=== PATIENT | female | born 1985 | race American Indian/Alaskan Native ===

== ENCOUNTER 2016-11-07 10:09 | Emergency (ER) | payer SELFPAY ==
[2016-11-07 11:46] VITALS: BP 123/86
[2016-11-07] MEDS ORDERED: TORADOL IM ONE (13:02)
--- NOTE | 2016-11-07 13:03 | Emergency Department Report ---
ED Extremity Problem HPI - General Chief complaint: Extremity Injury, Lower Stated complaint: L KNEE PAIN Time Seen by Provider: 11/07/16 12:49 Source: patient, RN notes reviewed Mode of arrival: Ambulatory Limitations: No Limitations - History of Present Illness Initial comments: This is a 31-year-old female. She is previously unknown to me. She presents to the ER with left knee pain for 3 weeks. This is an acute on chronic pain, she's been having pain for 7 or 8 years. The pain is achy, and increases with palpation or range of motion. It decreases with rest. There is no posterior leg pain or calf swelling. She does not take control tablets. No recent road trips, no recent surgeries, no recent periods of immobility. MD Complaint: extremity pain -: Gradual, week(s) Location: left, lower extremity History of Same: Yes -: Yes arthralgia Radiation: none Quality: aching Consistency: intermittent Improves with: rest Worsens with: weight bearing, walking, exertion, palpation Associated Symptoms: denies other symptoms - Related Data Previous Rx's Medication Instructions Recorded Last Taken Type Ibuprofen [Motrin] 600 mg PO Q8H PRN #30 tablet 11/07/16 Unknown Rx Allergies Allergy/AdvReac Type Severity Reaction Status Date / Time latex AdvReac Swelling Verified 11/07/16 11:48 ED Review of Systems ROS: Stated complaint: L KNEE PAIN Other details as noted in HPI ED Past Medical Hx - Past Medical History Previous Medical History?: No - Surgical History Past Surgical History?: No - Social History Smoking Status: Current Every Day Smoker Substance Use Type: Alcohol - Medications Home Medications: Home Medications Medication Instructions Recorded Confirmed Last Taken Type Ibuprofen [Motrin] 600 mg PO Q8H PRN #30 tablet 11/07/16 Unknown Rx ED Physical Exam - General Limitations: No Limitations General appearance: alert, in no apparent distress - Head Head exam: Present: atraumatic, normocephalic - Eye Eye exam: Present: normal appearance, EOMI. Absent: nystagmus - ENT ENT exam: Present: normal exam, normal orophraynx, mucous membranes moist, normal external ear exam - Neck Neck exam: Present: normal inspection, full ROM. Absent: tenderness, meningismus - Respiratory Respiratory exam: Present: normal lung sounds bilaterally. Absent: respiratory distress, wheezes, rales, rhonchi, stridor, chest wall tenderness, accessory muscle use, decreased breath sounds, prolonged expiratory - Cardiovascular Cardiovascular Exam: Present: regular rate, normal rhythm, normal heart sounds. Absent: systolic murmur, diastolic murmur, rubs, gallop - GI/Abdominal GI/Abdominal exam: Present: soft, normal bowel sounds. Absent: distended, tenderness, guarding, rebound, rigid, pulsatile mass - Extremities Exam Extremities exam: Present: normal inspection, full ROM, tenderness (the compartments are soft. 2+ pulses are noted in the bilateral upper and lower extremities. There is tenderness in the medial and lateral joint line. There is no instability. There is pain with valgus and varus stress. The compartments are soft. Walks with a slight limp, able to weight-bear. No redness, pus or streaking), normal capillary refill. Absent: pedal edema, joint swelling, calf tenderness - Back Exam Back exam: Present: normal inspection, full ROM. Absent: paraspinal tenderness - Neurological Exam Neurological exam: Present: alert, oriented X3, normal gait, other (Extraocular movements intact. Tongue midline. No facial droop. Facial sensation intact to light touch in the V1, V2, V3 distribution bilaterally. 5 and 5 strength in 4 extremities.. Sensation is intact to light touch in 4 extremities.). Absent : motor sensory deficit - Psychiatric Psychiatric exam: Present: normal affect, normal mood - Skin Skin exam: Present: warm, dry, intact, normal color. Absent: rash ED Course Vital Signs 11/07/16 11/07/16 11:42 13:29 Temperature 98.8 F Pulse Rate 65 Respiratory 16 18 Rate Blood Pressure 123/86 O2 Sat by Pulse 100 Oximetry ED Medical Decision Making - Lab Data Vital Signs 11/07/16 11/07/16 11:42 13:29 Temperature 98.8 F Pulse Rate 65 Respiratory 16 18 Rate Blood Pressure 123/86 O2 Sat by Pulse 100 Oximetry - Radiology Data Radiology results: image reviewed interpreted by me: X-ray of the left knee demonstrates no fracture or dislocation. - Medical Decision Making Differential diagnosis: Fracture, dislocation, sprain, strain, dislocation, soft tissue injury, meniscal injury Assessment and plan: 31-year-old female with acute on chronic left lower extremity knee pain. No pulmonary embolus or DVT risk factors, low risk by well 's criteria, perc negative physical exam not consistent with cellulitis or compartment syndrome. X-ray demonstrates no fracture or dislocation. She can follow up with outpatient orthopedics. Return precautions are reviewed. Critical care attestation.: If time is entered above; I have spent that time in minutes in the direct care of this critically ill patient, excluding procedure time. ED Disposition Clinical Impression: Left knee pain Disposition: DC- TO HOME OR SELFCARE Is pt being admited?: No Does the pt Need Aspirin: No Condition: Stable Instructions: Arthralgia (ED) Additional Instructions: Rest and avoid heavy lifting. Avoid strenuous physical activity. Take the pain medication as directed. Follow-up with an orthopedist within the next 2-3 weeks. Return to the ER right away with new pain, worsened pain, migration of pain, fevers, chills, chest pain, shortness of breath, confusion, intractable nausea or vomiting, inability to tolerate liquid feeds. Referrals: PRIMARY MD CLOVER [Primary Care Provider] - 3-5 Days SUSAN MATUTE MD [Staff Physician] - 3-5 Days [facility] [Provider Group] - 3-5 Days Forms: Work/School Release Form(ED)
--- NOTE | 2016-11-07 14:08 | XRay Report ---
LEFT KNEE RADIOGRAPHS INDICATION: Left knee pain. COMPARISON: None similar at this institution. FINDINGS: AP, lateral and oblique left knee radiographs demonstrate intact bony articulation and appearance. Normal soft tissues without evidence of suprapatellar effusion. CONCLUSION: Normal left knee radiographs. Thank you for the opportunity to participate in this patient's care.
== END 2016-11-07 13:46 | disposition home or self-care (01) ==
LOC: ED 10:09
DX: M25.562 Pain in left knee (principal); G89.29 Other chronic pain; F17.200 Nicotine dependence, unspecified, uncomplicated; Z91.040 Latex allergy status; X58.XXXA Exposure to other specified factors, initial encounter; Y93.89 Activity, other specified; Y99.8 Other external cause status; Y92.89 Other specified places as the place of occurrence of the external cause
CPT/HCPCS: 29505; 73562; 96372; 99283; J1885

== ENCOUNTER 2016-11-09 14:13 | Emergency (ER) | payer SELFPAY | END 2016-11-09 15:51 | disposition left against medical advice (07) | LOC: ED 14:13 | DX: Z53.21 Procedure and treatment not carried out due to patient leaving prior to being seen by health care provider (principal); Z91.040 Latex allergy status ==